=== PATIENT | male | born 1940 | race Caucasian/White ===

== ENCOUNTER 2023-10-10 13:44 | Outpatient (CLI) | payer OTHER, SELFPAY ==
--- NOTE | ~2023-10-10 | MR_ITS ---
EXAMINATION: MR abdomen wo/w con DATE: 10/10/2023 14:36 INDICATION: Malignant neoplasm of prostate. TECHNIQUE: Magnetic resonance imaging (MRI) of the abdomen was performed without and with 15 mL Multi Tish intravenous contrast. COMPARISON: None. FINDINGS: There are cysts in the liver measuring up to 7 mm. There is a 14 mm hyperenhancing mass without washo ut in the liver. The gallbladder, spleen, pancreas, and adrenal glands are normal. There are cysts in the kidneys measuring up to 6 mm on the left. There are no dilated loops of bowel. There are no path ologically enlarged lymph nodes. There is no free intraperitoneal fluid. There is thoracolumbar levos coliosis and severe spondylosis. IMPRESSION: 1. 14 mm hyperenhancing liver mass, most likely a hemangioma or focal nodular hyperplasia. Reviewed, dictated and finalized at location A. IMPRESSION: 1. 14 mm hyperenhancing liver mass, most likely a hemangioma or focal nodular h yperplasia.
== END 2023-10-10 13:45 ==
DX: E78.2 Mixed hyperlipidemia (principal); R63.4 Abnormal weight loss; C61 Malignant neoplasm of prostate
CPT/HCPCS: 74183; A9577